=== PATIENT | male | born 1995 | race Caucasian/White ===

== ENCOUNTER 2021-01-17 08:48 | Emergency (ER) | payer OTHER ==
[~2021-01-17] VITALS: Ht 175.3 cm; Wt 76.6 kg
[2021-01-17 14:58] VITALS: BP 137/81
== END 2021-01-17 14:50 | disposition home or self-care (01) ==
LOC: M ED 08:48
DX: Z20.822 Contact with and (suspected) exposure to COVID-19 (principal)